=== PATIENT | female | born 1995 | race Caucasian/White ===

== ENCOUNTER 2016-10-23 05:52 | Day surgery (SDC) | payer MEDICAID ==
[~2016-10-23] VITALS: Ht 157.5 cm; Wt 56.7 kg
[2016-10-23] MEDS ORDERED: LISINOPRIL5 M1 PO (06:57)
[2016-10-23] MEDS ORDERED: RANITIDINE HCL150 M2 PO (06:57)
[2016-10-23] MEDS ORDERED: RANITIDINE HYD150 M2 PO (06:57)
[2016-10-23] MEDS ORDERED: RANITIDINE HCL PO (06:57)
[2016-10-23] MEDS ORDERED: fentaNYL 0.05 MG/ML VIAL ONE (07:30)
[2016-10-23] MEDS ORDERED: MIDAZOLAM 2 MG/2 ML VIAL ONE ×2 (07:31→07:48)
== END 2016-10-23 08:40 | disposition home or self-care (01) ==
LOC: MDS 05:52 → MMU 06:07 → MDS 08:40
PROVIDERS: ATTEND Internal Medicine Gastroenterology
DX: K31.89 Other diseases of stomach and duodenum (principal); B96.81 Helicobacter pylori [H. pylori] as the cause of diseases classified elsewhere; K21.9 Gastro-esophageal reflux disease without esophagitis
CPT/HCPCS: 36415; 43239; 86677; J2250; J7030